=== PATIENT | male | born 1955 | race Caucasian/White ===

== ENCOUNTER 2018-07-12 14:06 | Emergency (ER) | payer MEDICAID, OTHER ==
[~2018-07-12] VITALS: Ht 182.9 cm; Wt 89.4 kg
[~2018-07-12 14:06] MED LIST: DOCU100C28 PO; GEMF600T PO; LEVO125T5 PO; LEVO150T PO; NAPR500T8 PO; NORT75CA PO; TAMS0.4C97 PO
[2018-07-12 14:10] VITALS: BP 116/70
[2018-07-12] MEDS ORDERED: HYDROcodone/APAP 5/325MG 1 TAB TABLET PO ONE (15:15)
--- NOTE | 2018-07-12 15:41 | RAD ---
Examination: CT of the right shoulder without contrast HISTORY: History of humerus head fracture. COMPARISON: None available TECHNIQUE: Axial CT images of the right shoulder performed without contrast. Coronal and sagittal reformats are performed. Exposure: One or more of the following individualized dose reduction techniques were utilized for this examination: 1. Automated exposure control 2. Adjustment of the mA and/or kV according to patient size 3. Use of iterative reconstruction technique FINDINGS: The humerus head is within the glenoid. There is minimal displaced comminuted three-part fracture of the humerus head with the fracture lines extending to the surgical neck of the humerus. Mild degenerative changes identified in the acromioclavicular joint. Calcified granuloma identified in the right upper lobe of the lung.Mild soft tissue stranding identified anterior to the right proximal humerus likely secondary to soft tissue injury. IMPRESSION: 1. Comminuted minimal displaced 3 part fracture of the humerus head with fracture lines extending to the surgical neck of the humerus. Electronically signed by: Mac Luna MD (07/12/2018 3:37 PM) [id number]
--- NOTE | 2018-07-12 16:17 | PHYS DOC ---
Past Medical History Past Medical History: GI Bleed Additional Past Medical Histor: thyroid CA Past Surgical History: Other Additional Past Surgical Histo: thyroid Alcohol Use: None Drug Use: Marijuana Adult General Chief Complaint Chief Complaint: SHOULDER INJURY HPI HPI Patient is a 63 year old male presenting with shoulder injury. He was [facility] for a [facility] scan and orthopedics evaluation he had a mechanical fall 4:30 AM landed right on his right shoulder no other injuries pain is severe nonradiating right shoulder worse with palpation Review of Systems Review of Systems Constitutional: Denies fever or chills [] Eyes: Denies change in visual acuity, redness, or eye pain [] HENT: Denies nasal congestion or sore throat [] Respiratory: Denies cough or shortness of breath [] Cardiovascular: No additional information not addressed in HPI [] Neurologic: Denies headache, focal weakness or sensory changes [] Endocrine: Denies polyuria or polydipsia [] All other systems were reviewed and found to be within normal limits, except as documented in this note. Current Medications Current Medications Current Medications Medications (Trade) Dose Ordered Sig/Sussy Start Time Stop Time Status Last Admin Dose Admin Acetaminophen/ Hydrocodone Bitart (Lortab 5/325) 2 tab 1X ONCE 07/12/18 15:15 07/12/18 15:17 DC 07/12/18 16:00 2 TAB Allergies Allergies Allergies Coded Allergies Type Severity Reaction Last Updated Verified No Known Drug Allergies 02/08/16 No Physical Exam Physical Exam Constitutional: Well developed, well nourished, no acute distress, non-toxic appearance. [] HENT: Normocephalic, atraumatic, bilateral external ears normal, oropharynx moist, no oral exudates, nose normal. [] Eyes: PERRLA, EOMI, conjunctiva normal, no discharge. [] Neck: Normal range of motion, no tenderness, supple, no stridor. [] Pulmonary: Normal respiratory effort no increased work of breathing no obvious chest wall trauma Abdomen: Bowel sounds normal, soft, no tenderness, no masses, no pulsatile masses. [] Extremities: Reduced range of motion right shoulder tenderness to palpation noted , limited abduction Neurologic: Alert and oriented X 3, normal motor function, normal sensory function, no focal deficits noted. [] Psychologic: Affect normal, judgement normal, mood normal. [] Current Patient Data Vital Signs Vital Signs Date Time Temp Pulse Resp B/P (MAP) Pulse Ox O2 Delivery O2 Flow Rate FiO2 07/12/18 16:00 18 95 Room Air 07/12/18 14:10 98.3 92 116/70 (85) 98.3 EKG EKG [] Radiology/Procedures Radiology/Procedures [] Impressions: Reviewed CT showing minimal displaced surgical neck humerus fracture. Course & Med Decision Making Course & Med Decision Making Pertinent Labs and Imaging studies reviewed. (See chart for details) []Reviewed CT scan with Dr. Virgen Clemens for outpatient management place and sling have follow-up with Dr. Martinez shoulder specialist. I notified the patient is planning he is in agreement with discharge back to custody at this time Dragon Disclaimer Dragon Disclaimer This electronic medical record was generated, in whole or in part, using a voice recognition dictation system. Departure Departure Impression: Primary Impression: Humerus fracture Disposition: 05 TRANSFER OTHER Condition: STABLE Referrals: NO PCP (PCP) ALVARO MARTINEZ MD Patient Instructions: Humerus Fracture, Treated with Immobilization HAILY DAWSON MD Jul 12, 2018 16:16
== END 2018-07-12 17:35 | disposition short-term general hospital (02) ==
LOC: ER 14:06
DX: S42.211A Unspecified displaced fracture of surgical neck of right humerus, initial encounter for closed fracture (principal); W18.30XA Fall on same level, unspecified, initial encounter; Y93.89 Activity, other specified; Y92.89 Other specified places as the place of occurrence of the external cause; Y99.8 Other external cause status
CPT/HCPCS: 73200; 99285